=== PATIENT | female | born 1950 | race Caucasian/White ===

== ENCOUNTER → 2017-03-17 | Outpatient (CLI) | payer BC | LOC: BMCIMAGING 14:02 | PROVIDERS: ATTEND Family Medicine | DX: M79.89 Other specified soft tissue disorders (principal) ==

== ENCOUNTER → 2017-07-21 | Outpatient (CLI) | payer BC ==
[~2017-07-21] MED LIST: IOPAMIDOL (ISOVUE 370) 100 ML BTL IV ONE
== END ==
LOC: FIMAGING 12:39
PROVIDERS: ATTEND Internal Medicine Rheumatology
DX: Q27.9 Congenital malformation of peripheral vascular system, unspecified (principal)
CPT/HCPCS: Q9967

== ENCOUNTER 2018-02-24 17:04 | Inpatient (IN) | payer OTHER, BC ==
--- NOTE | 2018-02-24 17:22 | CPEKG ---
Heart Rate: 68 RR Interval: 882 P-R Interval: 160 QRSD Interval: 88 QT Interval: 404 QTC Interval: 430 P [place]: 30 QRS [place]: -16 T Wave [place]: 21 EKG Severity - OTHERWISE NORMAL ECG - EKG Impression: SINUS RHYTHM EKG Impression: BORDERLINE LEFT AXIS DEVIATION Electronically Signed By: Cristal Wright 24-Feb-2018 22:42:46
[2018-02-24] MEDS ORDERED: ASPIRIN 81 MG CHEWABLE TAB PO ONE (18:00)
--- NOTE | 2018-02-24 18:01 | EDPHY ---
H & P Time Seen by Provider: 02/24/18 17:25 HPI/ROS: CHIEF COMPLAINT: Achiness, abnormal labs HISTORY OF PRESENT ILLNESS: The patient is a 68 y/o female sent by her PCP for abnormal blood work and achiness. She developed fatigue, headache, and achiness in her chest, upper back, neck, and shoulders, at the end of December. The symptoms were constant for two weeks but dissipated. She felt normal for a week and traveled to [place]. After she returned, her achiness reappeared, prompting her to visit her PCP on Wednesday. The blood work done by her PCP indicated elevated troponin and d-dimer. Her achiness is transient with no known factors causing the appearance. She has associated occasional shortness of breath and fatigue. She denies peripheral edema, pain or redness in the lower extremities, diaphoresis, or any other associated symptoms. Her father had cardiac issues in his 60s. She is a former smoker. Her only recent travel is to and from [place] via airplane. She does not take aspirin. REVIEW OF SYSTEMS: A 10 point review of systems was performed and is negative with the exception of the elements mentioned in the history of present illness. Past Medical/Surgical History: 1. 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 Hypercholesterolemia 3. Vertigo after air travel Social History: Neighbors at bedside, enjoys watching [employer], traveling to [place] in the next few months Smoking Status: Former smoker Physical Exam: General Appearance: Alert, pleasant Eyes: Pupils equal and round, no conjunctival pallor or injection ENT, Mouth: Mucous membranes moist Neck: Normal inspection Respiratory: Lungs are clear to auscultation Cardiovascular: Regular rate and rhythm Gastrointestinal: Abdomen is soft and non-tender Neurological: A&O, nonfocal exam Skin: Warm and dry, no rash Extremities: Nontender, no pedal edema Psychiatric: Mood and affect normal Constitutional: Initial Vital Signs Temperature (C) 36.9 C 02/24/18 17:07 Heart Rate 69 02/24/18 17:07 Respiratory Rate 16 02/24/18 17:07 Blood Pressure 121/78 H 02/24/18 17:07 O2 Sat (%) 96 02/24/18 17:07 O2 Delivery Mode Nasal Cannula O2 (L/minute) 2 Allergies/Adverse Reactions: Penicillins Allergy (Verified 02/24/18 18:45) Hives Home Medications: Medication Instructions Recorded Albuterol [Proventil Inhaler HFA 1 - 2 puffs IH Q4H PRN 02/24/18 (*)] Fluticasone Hfa 110 Mcg [Flovent 2 puffs IH BID 02/24/18 110 MCG Hfa MDI (*)] Fluticasone Nasal [Flonase Nasal 1 sprays NASAL DAILY 02/24/18 Gause (RX)] Venlafaxine Xr [Effexor Xr 37.5MG 37.5 mg PO DAILY@12 02/24/18 (*)] Zolpidem Tartrate [Ambien 5MG (*)] 5 mg PO HS PRN 02/24/18 Medical Decision Making - Diagnostics EKG Interpretation: EKG interpreted by me reveals normal sinus rhythm, rate 68, left axis deviation , no ST or T segment changes. Interpretation: Borderline EKG. Imaging Results: Chest X-Ray 02/24/18 18:00 Impression: 1. Airways disease and atelectasis. 2. Minimal cardiomegaly. No failure. ED Course/Re-evaluation: The patient presents chest discomfort, elevated troponin and d-dimer. Clinical scenario consistent with CAD/ACS; doubt pulmonary embolism, given intermittent symptoms. Stat EKG reveals no evidence of ischemia or dysrhythmia. She has been experiencing intermittent achiness in her neck, shoulders, back and chest for several weeks. She has associated fatigue and occasional shortness of breath. She denies any other symptoms. Her exam is normal. Plan for a re-draw of labs, including troponin and BNP; EKG, chest X-ray, and aspirin. ASA 324mg orally given. Chest x-ray is unremarkable; no evidence of pneumonia or pneumothorax. 6:15 PM- patient continues to be asymptomatic. patient monitor revealed normal sinus rhythm throughout. CT pulmonary angiogram ordered because of elevated D- dimer and reveals no evidence of pulmonary embolism. Given elevated troponin, which is rising, she will need to be admitted for further cardiac evaluation. I spoke with the hospitalist regarding admission for this patient. Dr. Gutiérrez will be the admitting physician. The patient agrees to this course of action. Differential Diagnosis: Differential diagnosis includes though it is not limited to pneumonia, pneumothorax, pulmonary embolism, aortic dissection, pericarditis, acute coronary syndrome. - Data Points Laboratory Results: Laboratory Results 02/24/18 22:49 02/25/18 10:10 Troponin I 0.118 ng/mL H ng/mL (0.000-0.034) Microbiology Results: MICROBIOLOGY 02/25/18 10:20 Nasal, Sinus - Swab Respiratory Panel (PCR) - Final No Organism Detected Medications Given: Acetaminophen (Tylenol) 650 mg PO Q4HRS PRN PRN Reason: Pain, Mild/Fever, Can Take PO Stop: 08/23/18 18:15 Last Admin: 02/25/18 19:44 Dose: 650 mg Enoxaparin Sodium (Lovenox) 40 mg SC DAILY [facility] Stop: 08/24/18 08:59 Last Admin: 02/25/18 10:20 Dose: Not Given Fluticasone Propionate (Flovent Hfa) 2 puffs IH BID [facility] Stop: 08/23/18 20:59 Last Admin: 02/25/18 10:20 Dose: Not Given Fluticasone Propionate (Flonase Nasal Gause) 1 sprays [place] DAILY [facility] Stop: 08/24/18 08:59 Last Admin: 02/25/18 10:20 Dose: Not Given Venlafaxine HCl (Effexor Xr) 37.5 mg PO DAILY@12 [facility] Stop: 08/24/18 11:59 Last Admin: 02/25/18 15:27 Dose: 37.5 mg Discontinued Medications Aspirin (Aspirin) 324 mg PO EDNOW ONE Stop: 02/24/18 18:01 Last Admin: 02/24/18 18:22 Dose: 324 mg Aspirin Buffered (Aspirin Ec) 325 mg PO ONCALL ONE Stop: 02/25/18 09:59 Last Admin: 02/25/18 10:37 Dose: 325 mg Diazepam (Valium) 5 mg PO ONCALL ONE Stop: 02/25/18 09:59 Last Admin: 02/25/18 10:37 Dose: 5 mg Diphenhydramine HCl (Benadryl) 25 mg PO ONCALL ONE Stop: 02/25/18 09:59 Last Admin: 02/25/18 10:37 Dose: 25 mg Famotidine (Pepcid) 20 mg PO ONCALL ONE Stop: 02/25/18 09:59 Last Admin: 02/25/18 10:37 Dose: 20 mg Departure - Departure Disposition: [facility] Clinical Impression: Elevated troponin Chest pain Qualifiers: Chest pain type: unspecified Qualified Code(s): R07.9 - Chest pain, unspecified Condition: Fair Report Scribed for: Cristal Wright Report Scribed by: Kinsey Lorenz Date of Report: 02/24/18 Time of Report: 17:43 Physician Review and Approval Statement: 02/24/18 17:43 Portions of this note were transcribed by a senior medical transcriptionist. I personally performed a history, physical exam, medical decision making, and confirmed accuracy of information the transcribed note.
[2018-02-24] MEDS ORDERED: ONDANSETRON 4 MG/2 ML VIAL IVP PRN (18:16)
[2018-02-24] MEDS ORDERED: ONDANSETRON DISINTEGRATING 4 MG TAB PO PRN (18:16)
[2018-02-24] MEDS ORDERED: NITROGLYCERIN 0.4 MG BTL SL PRN (18:21)
[2018-02-24] MEDS ORDERED: IOPAMIDOL (ISOVUE 370) 100 ML BTL IV ONE (19:25)
[2018-02-24] MEDS ORDERED: ALBUTEROL 60 PUFFS/8 GM MDI IH PRN (20:03)
[2018-02-24] MEDS ORDERED: ZOLPIDEM TARTRATE 5 MG TAB PO PRN (20:03)
[2018-02-24] MEDS: ACETAMINOPHEN 325 MG TAB PO PRN (20:53)
[2018-02-24 22:55] LABS: PLATELET COUNT 212 10^3/uL (150-400)
[2018-02-24] MEDS: FLUTICASONE HFA 110 MCG MDI IH SCH (23:10)
--- NOTE | 2018-02-25 | GHP ---
[f rep st] HISTORY AND PHYSICAL DATE OF ADMISSION: 02/24/2018 CHIEF COMPLAINT: Chest pressure, fatigue. HISTORY OF PRESENT ILLNESS: A 68-year-old female with history of hyperlipidemia , pre-diabetes, prior osteomyelitis of left finger, presenting with nonspecific symptoms including chest pressure. It is a bit difficult to get a clear history , but began feeling achy in chest, fatigued with cough starting late December. [facility] like the flu. Had been in [place] in [place]. Did not get sick there and took all immunizations. Has intermittent episodes of chest pressure that occur at rest; episodes lasting 2 hrs or more, No associated diaphoresis, N/V or hand tingling. Can radiate neck and her right arm. No aggravating factors; does not change with activity. Relieved by Advil. Was feeling better, so went to [place] for Spring Break. Symptoms restarted this past week. Again, achy, chills and shivers. Chest pain in both shoulders and right arm. No F/C/S.. No N/V/D. More fatigued. No joint pain or swelling. 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 Exercises in a class called "[employer]" 3 times a week doing running, weights , strength training without chest pressure or shortness of breath. Gets winded if she walks up several flights of stairs, but that is not new. Went to PCP today had elevated troponin at 0.09 and D-dimer. REVIEW OF SYSTEMS: I completed a 10-point review of systems, negative except as noted in HPI. 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 Recent vertigo. 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 She is followed by Dr. Salguero. Hyperlipidemia. Pre- diabetes with A1c 5.8. Depression. PAST SURGICAL HISTORY: . Removal of the lung in 2000. FAMILY HISTORY: Dad with coronary artery disease. Mother with rheumatoid arthritis. Great aunt with stroke. ALLERGIES: Flonase, Flovent, Ambien, Effexor 37.5, albuterol. SOCIAL HISTORY: Lives in [place]. Is accompanied here by her neighbors. Occasional marijuana. Had a [id number] tobacco. Drinks 2 glasses of wine a night. PHYSICAL EXAMINATION: VITAL SIGNS: Temperature 36.9, blood pressure 129/70, heart rate is , respirations 16, 94% on room air. GENERAL: Overweight female in no acute distress. Smiling. HEENT: PERRLA. EOMI. Oropharynx clear. CV: Regular rate and rhythm. No murmurs, gallops, or rubs. No lower extremity edema. No reproducible chest pain. LUNGS: Clear. No wheezing or crackles. ABDOMEN: Soft, nontender, nondistended. Positive bowel sounds. : No Reese. No suprapubic tenderness. MUSCULOSKELETAL: 5/5 upper and lower extremity strength. No synovitis or joint swelling. Right hand is cool and purplish color, but this is chronic per her. It has a good radial pulse. NEURO: 2 through 12 intact. PSYCH: Alert and oriented x3. LABORATORY: A1c is 5.4. AST is 33. ALT is 57. Total bilirubin 0.7. Conjugated 0.4. CRP is 74. BNP is 1930. Albumin is 3.9. Initial troponin 0.098; repeated 0.115. Chest x-ray negative for effusion or edema. Does show cardiomegaly. Surgical clips in place. EKG was personally reviewed by me. ST flattening in lead 3, aVF, V1 through V3. No old to compare. ASSESSMENT AND PLAN: 1. Chest pressure: vague symptoms could be anginal equivalent, but it does not occur with exercise and can be constant for hours. Relieved by Advil. Differential includes infection,myocarditis, PE, ACS, vs another systemic etiology. Had extensive travel and dimer. CTA pending. Repeat troponin bumped to 0.115, BNP elevated to 1930. No signs of CHF. EKG shows low-voltage. Start with TTE and will likely need stress test vs. cath. Consult cardiology in morning. ESR/CRP pending. 2. Fatigue. Check TSH. Query some illness possibly related to trip to [place] , but denies being sick there. 3. Depression. Effexor. 4. Hyperlipidemia. Not on medications. 5. Alcohol use. 2 glasses wine daily. 6. Questionable Raynaud's: per pt, seen by Dr. Rivera. CT in June 2017 showed a congenital small subclavian left artery and this is thought to be causing hand discoloration. She also has a high bifurcation of the radial and ulnar arteries at the upper humeral level. Denies other systemic joint swelling/ pain. 7. Diet. Regular. No caffeine. Nothing by mouth after midnight. 8. DVT: Lovenox DISPOSITION: Patient warrants observation and admission given possible anginal equivalents requiring stress test, CTA. Discussed case with Dr. Wright in ER. /[id number]/MODL MTDD
[2018-02-25] MEDS ORDERED: DIAZEPAM 5 MG TAB PO ONE (09:58)
[2018-02-25] MEDS ORDERED: TEMAZEPAM 15 MG CAP PO PRN (09:58)
[2018-02-25] MEDS ORDERED: FAMOTIDINE 20 MG TAB PO ONE (09:58)
[2018-02-25] MEDS ORDERED: diphenhydrAMINE 25 MG CAP PO ONE ×2 (09:58→10:27)
[2018-02-25] MEDS ORDERED: ASPIRIN EC 325 MG TAB PO ONE ×2 (09:58→10:27)
--- NOTE | 2018-02-25 10:04 | PDHPUP ---
History & Physical Update H&P update statement: This history and physical update is based on an assessment of the patient which was completed after admission or registration (within 24 hours), but prior to the surgery/procedure. H&P update: H&P reviewed & patient examined, no change in patient's condition since H&P completed
--- NOTE | 2018-02-25 10:04 | PDPROPOC ---
Sedation Plan of Care Sedation Plan of Care: mental status noted, patient educated of risks, benefits , alternatives, patient can tolerate sedation ASA Classification: ASA 2 Planned drugs: fentanyl, midazolam Mallampati Score: Class 2 Mallampati Reference Image: Patient passed 3-3-2 rule?: Yes
[2018-02-25] MEDS: FLUTICASONE HFA 110 MCG MDI IH SCH ×2 (10:20→20:58)
[2018-02-25] MEDS: ENOXAPARIN 40 MG/0.4 ML SYR SC SCH (10:20)
[2018-02-25] MEDS: FLUTICASONE NASAL 120 SPRAYS/16 GM MDI EACHNARE SCH (10:20)
[2018-02-25] MEDS ORDERED: FAMOTIDINE 20 MG TAB ONE (10:27)
[2018-02-25] MEDS ORDERED: DIAZEPAM 5 MG TAB ONE (10:28)
--- NOTE | 2018-02-25 10:36 | GCON ---
[f rep st] CONSULTATION CARDIOLOGY CONSULTATION REFERRING PHYSICIAN: Marzena Gutiérrez MD CHIEF COMPLAINT: Chest pressure, fatigue. HISTORY OF PRESENT ILLNESS: This is a 68-year-old female with history of hyperlipidemia, who present ed to [facility] with complaints of nonspecific symptoms, including chest pressure over the last few weeks. The patient indicates that she has been having on and off achy symptoms in the chest and fatigue, wh ich has at times waxed and waned. In the last 48 hours, she has noticed though that these symptoms h ave been getting worse, and decided to come to the emergency room for further evaluation. In the [facility] room, her ECG showed normal sinus rhythm with nonspecific T-wave changes. She did have elevat ed troponins in the emergency room, as well as elevated BNP level. Currently, blood pressure and heart rate are stable. Patient denies any current chest discomfort at rest. She denies any smoking or drug use. PAST MEDICAL HISTORY: Significant for osteomyelitis of the left finger, history of hyperlipidemia, p rediabetes, depression. FAMILY HISTORY: Significant for coronary artery disease on the paternal side. SOCIAL HISTORY: Was a former smoker. Occasional marijuana use. Occasional alcohol use. HOME MEDICATIONS: Please see patient's attached chart. REVIEW OF SYSTEMS: Patient denies any vision change, no headache. No palpitations. No chest pain a t rest. No shortness of breath. No abdominal pain. No lower extremity pain. No back pain. No new neurologic issues. PHYSICAL EXAMINATION: VITAL SIGNS: Patient currently afebrile at 96, blood pressure 126/70, with a heart rate of 80, respirations 12, sat 95% on room air. HEENT: Pupils equal, round, reactive to lig ht and accommodation. Extraocular movements intact. CARDIOVASCULAR: Regular rhythm, S1, S2. LUNGS : Clear to auscultation bilaterally. ABDOMEN: Soft, nontender, no guarding. EXTREMITIES: No club daron, no cyanosis, no edema. NEUROLOGIC: Patient is alert and oriented x3. LABORATORY VALUES: Currently show a troponin of 0.137. Sodium 141, potassium 4.1. White cells of 6 .6, hemoglobin 13.3, hematocrit 39.7, platelets of 212. ASSESSMENT/PLAN: Chest pain/non-ST elevation myocardial infarction. At this time, given the patient 's history, as well as the elevated troponin levels, I feel that we should proceed with a left heart catheterization to define the patient's underlying coronary anatomy. I have explained the risks/poss ible complications of procedure including bleeding, stroke, and possible , and the patient would like to proceed with the heart catheterization. We will obtain an echocardiogram, though on prelimi nary evaluation of her images, it appears that her myocardial function is normal and she has no gross valvular abnormalities. This will of course be followed up with a full report after the echo is per formed. We will continue with her current medications and we will continue to treat as per her filippoi ophelia results show. /[id number]/MODL
[2018-02-25] MEDS ORDERED: LIDOCAINE 1% 300 MG/30 ML SDV ONE (10:40)
[2018-02-25] MEDS ORDERED: MIDAZOLAM 2 MG/2 ML VIAL ONE (10:41)
[2018-02-25] MEDS ORDERED: fentaNYL 100 MCG/2 ML INJ ONE ×2 (10:41→11:39)
[2018-02-25] MEDS ORDERED: IOPAMIDOL (ISOVUE-370) 150 ML BTL IV ONE (10:41)
--- NOTE | 2018-02-25 10:49 | ECHO ---
[email or web address] [address] Main: [phone] Fax: [email or web address] Echocardiogram Name: YARIEL GARCES MR#: [id number] Study Date: 02/25/2018 Study Time: 09:46 AM Date of : 1950 Age: 68 year(s) Height: 154.9 cm (61 in.) Weight: 69.85 kg (154 lb.) BSA: 1.69 m2 Gender: Female Examination: Echo Indication: Chest Pain Image Quality: Contrast: Requested by: Marzena Gutiérrez BP: 141 mmHg/69 mmHg Heart Rate: Rhythm: Normal sinus rhythm Indication: Chest Pain Procedure Staff Bilingual Hr Generalist: Akash Hernandez RDCS Reading Physician: Derik Aponte MD Requesting Provider: Conclusions: Normal global systolic LV function. EF is 68 %. Trivial mitral valve regurgitation. Measurements: Chambers Valvular Assessment AV/MV Valvular Assessment TV/PV Normal Normal Normal Name Value Range Name Value Range Name Value Range Ao Janine (MM): 2.6 cm (2.2 cm-3.7 AV Vmax: 1.78 m/s (1 m/s-1.7 PV Vmax: 0.92 m/s (0.6 m/s-0.9 cm) m/s) m/s) IVSd (2D): 1.0 cm (0.6 cm-1.1 AV maxP mmHg ( - ) PV PGmax: 3 mmHg ( - ) cm) LVOT Vmax: 1.20 m/s (0.7 m/s-1.1 LVDd (2D): 3.8 cm (3.9 cm-5.3 m/s) cm) MV E Vmax: 0.77 m/s ( - ) LVDs (2D): 2.4 cm (2.1 cm-4 MV A Vmax: 0.85 m/s ( - ) cm) MV E/A: 0.91 ( - ) LVPWd (2D): 1.4 cm ( - ) LVEF (2D): 68 (>=54 %) Continued Measurements: Chambers Valvular Assessment AV/MV Name Value Name Value LADs Lon.9 cm MV E' Septal: 0.05 m/s LA Area: 14.5 cm2 MV E/E' Septal: 16.50 LA Volume: 42 ml MV E/E' Lateral: 11.40 LA Volume Index: 24.9 ml/m2 Patient: YARIEL GARCES Study Date: 02/25/2018 Page 1 of 2 09:46 AM Findings: Left Ventricle: Normal size left ventricle. No LV hypertrophy. Normal global systolic LV function. EF is 68 %. No regional wall motion abnormality. Diastolic dysfunction is present. . Right Ventricle: Normal size right ventricle. Normal RV function. Left Atrium: The left atrium is normal in size. Right Atrium: The right atrium is normal in size. Mitral Valve: The mitral valve is normal in appearance and function. Trivial mitral valve regurgitation. Aortic Valve: The aortic valve is tri-leaflet. The aortic valve is normal in appearance and function. There is no aortic valve regurgitation. Tricuspid Valve: The tricuspid valve appears normal. Pulmonic Valve: The pulmonic valve is normal in appearance and function. Aorta: The aorta is normal. Pericardium: No pericardial effusion. (No Signature Object) Patient: YARIEL GARCES Study Date: 02/25/2018 Page 2 of 2 09:46 AM [id number]
[2018-02-25] MEDS ORDERED: BIVALIRUDIN 250 MG/5 ML VIAL IV ONE (11:12)
[2018-02-25] MEDS ORDERED: CLOPIDOGREL BISULFATE 75 MG TAB ONE (11:23)
[2018-02-25] MEDS ORDERED: METOPROLOL TARTRATE 5 MG/5 ML INJ ONE (11:40)
[2018-02-25] MEDS ORDERED: hydrALAZINE 20 MG/ML VIAL ONE (11:44)
[2018-02-25] MEDS ORDERED: NITROGLYCERIN 1,500 MCG/15 ML VIAL MISC ONE (11:45)
[2018-02-25] MEDS ORDERED: VENLAFAXINE XR 37.5 MG CAP PO SCH (12:00)
[2018-02-25] MEDS ORDERED: ATROPINE SULFATE 1 MG/10 ML SYR IVP PRN (12:05)
--- NOTE | 2018-02-25 13:08 | ASMTCASEMG ---
Living Arrangements What is your living Answers: Alone arrangement? Who do you live with? Type Of Residence What kind of residence do Answers: House you live in? Discharge Plan Comments Coordination Status Comments Notes: Pt is a 68 y/o female admitted for chest pain. Pt is having a heart CATH today. Pt will most likely d/c independent when medically stable. No therapies ordered at this time. CM available for changes. Plan: Independent Date Signed: 02/25/2018 01:07 PM Electronically Signed By:JV Jimenez
--- NOTE | 2018-02-25 17:51 | HOSPPROG ---
Hospitalist Progress Note Assessment/Plan: * NonSTEMI s/p stent LAD -ASA/Plavix * Hyperlipidemia -statin started * HTN -Norvasc * Congenital small left subclavian artery Subjective: Feels great post cath Objective: Vital Signs Temp Pulse Resp BP Pulse Ox 36.7 C 70 18 124/81 H 97 02/25/18 15:50 02/25/18 15:50 02/25/18 15:50 02/25/18 15:50 02/25/18 15:50 Microbiology 02/25/18 10:20 Respiratory Panel (PCR) - Final Nasal, Sinus - Swab No Organism Detected Laboratory Results 02/24/18 22:49 02/24/18 02/25/18 02/26/18 05:59 05:59 05:59 Output Total 600 Balance -600 Cardiology consulted - case d/w Dr. Whitaker ECHO - normal EF - Physical Exam Constitutional: no apparent distress, appears nourished, not in pain Cardiovascular: regular rate and rhythym, no murmur, rub, or gallop Respiratory: no respiratory distress, no rales or rhonchi, clear to auscultation Gastrointestinal: normoactive bowel sounds, soft, non-tender abdomen, no palpable masses Skin: no rashes or abrasions, no fluctuance, no induration Neurologic: AAOx3, sensation intact bilaterally Psychiatric: interacting appropriately, not anxious, not encephalopathic, thought process linear ICD10 Worksheet Patient Problems: Problems Problem Status Onset Chest pain Acute Elevated troponin Acute
--- NOTE | 2018-02-25 18:26 | PDMN ---
Medical Necessity Medical necessity: C/M review: Patient meets INPT crtieria under [facility] M-230 Myocardial infarction: Acute NSTEMI, troponins 0.137, 0.118, 86% RA sat, requiring 02/26/2016 cardiac catheterization - [facility], PCI with stent to LAD, ongoing oral Plavix and aspirin QD, cardiac monitoring, pulse oximetry, supplemental O2, comorbid hyperlipidemia, hypertension, congenital small left subclavian artery. MD anticipates > 2 MN LOS for ongoing med nec for eval and TX of above.
[2018-02-25] MEDS: ACETAMINOPHEN 325 MG TAB PO PRN (19:44)
--- NOTE | 2018-02-25 20:18 | CPIP ---
[f rep st] INVASIVE CARDIAC PROCEDURE DATE OF PROCEDURE: 02/25/2018 INDICATION FOR PROCEDURE: Non-STEMI. PROCEDURES: 1. Nonselective right groin sheathogram. 2. Bilateral coronary angiography. 3. Left heart catheterization. 4. Left ventriculogram. 5. Percutaneous intervention of mid left anterior descending utilizing Synergy 2.5 x 16 mm drug-elut ing stent. DESCRIPTION OF PROCEDURE: Briefly, this is a 68-year-old female who was admitted for chest pain. Th e patient was found to have elevated troponins. Given the fact the patient had chest pain, as well a s elevated troponins, the patient was consented for left heart catheterization the patient was brought to [facility] where the right groin was prepped and draped in sterile fashion. Using lidocaine, a short 6-Panamanian sheath introduced into the right common femoral artery verified angiograp hically. Through the 6-Panamanian sheath, a JL4 catheter was advanced to the left coronary artery. Imag es of the left coronary artery revealed normal short left main. Left circumflex artery appeared to b e a codominant circulation giving off an LPLS proximally which was healthy and free of disease. Just distal to this, there was a tubular area of disease ranging up to 50% to 60% disease. Distally, the marginal artery appeared to be healthy and free of disease. The LAD was a long vessel which wrapped around the apex. The LAD gave off a medium diagonal artery proximally which was healthy and free of disease. In the midbody of the LAD, there was a tubular area of 70% stenosis just at the takeoff of a small diagonal artery. Distally, the LAD appeared to be widely patent. After these images were o btained, the JL4 catheter was removed. A JR4 catheter was then advanced to the right coronary artery . Images of the right coronary artery revealed normal ostial RCA, prox 20% plaque disease. Distally , the RPDA appeared to be healthy and free of disease. After the images were obtained, the JR4 jacqueline ter was removed. The pigtail catheter was guided into the left ventricle. LVEDP was 15 mmHg. Left ventriculogram in the LAKHANI projection showed an EF of 60% with no wall motion abnormalities. There wa s no pull-back gradient between the LV and the aorta. INTERVENTION REPORT: At this time, patient was administered mg of Plavix p.o., started on Angiomax bolus and drip. Utilizing the EBU 3.0 guide, the left coronary artery was selectively enga ged. A Choice PT wire was placed down the LAD. Predilatation was commenced with a 2.5 x 15 mm ballo on at 12 atmospheres. After this was performed, we then proceeded with stenting of the vessel with a 2.5 x 60 mm Synergy drug-eluting stent. This was deployed successfully at 14 atmospheres. After de ployment, angiography showed excellent patency of the stented area. The small diagonal artery that w as coming off the area of question had an ostial pinch. However, there was still intact CAITY-3 flow through the vessel. 200 mcg of nitroglycerin were administered IC and images were retaken and once a gain showed excellent patency of the stented areas. No evidence of dissection or perforation. Once again, there was CAITY-3 flow through the small diagonal artery coming off the stented area with an os tial pinch. At this time, the wire was removed. The guide catheter was removed . Right g roin was closed using 6-Panamanian Angio-Seal. The patient tolerated the procedure well. There were no complications. IMPRESSION: 1. 70% mid left anterior descending disease treated successfully with Synergy 2.5 x 16 mm drug-eluti ng stent. 2. Moderate disease in the marginal 1 artery rated 50% to 60%. 3. Codominant right coronary artery which shows no significant disease. 4. Normal ejection fraction. PLAN: The patient would be started on aspirin and Plavix. Aggressive risk factor modification inclu ding statins and blood pressure control will be initiated. Anticipate potential discharge within 24 hours. /[id number]/MODL
[2018-02-26 04:00] LABS: PLATELET COUNT 204 10^3/uL (150-400)
[2018-02-26 08:03] VITALS: BP 144/77
[2018-02-26] MEDS: FLUTICASONE NASAL 120 SPRAYS/16 GM MDI EACHNARE SCH (08:55)
[2018-02-26] MEDS: ENOXAPARIN 40 MG/0.4 ML SYR SC SCH (08:55)
[2018-02-26] MEDS: FLUTICASONE HFA 110 MCG MDI IH SCH (08:55)
[2018-02-26] MEDS ORDERED: ATORVASTATIN CALCIUM 40 MG TAB PO SCH (09:00)
[2018-02-26] MEDS ORDERED: CLOPIDOGREL BISULFATE 75 MG TAB PO SCH (09:00)
[2018-02-26] MEDS ORDERED: amLODIPine BESYLATE 5 MG TAB PO SCH (09:00)
[2018-02-26] MEDS ORDERED: ASPIRIN EC 325 MG TAB PO SCH (09:00)
[2018-02-26] MEDS ORDERED: METOPROLOL TARTRATE 25 MG TAB PO SCH (09:30)
[2018-02-26] MEDS ORDERED: ASPIRIN EC 81 MG TAB PO SCH (09:45)
--- NOTE | 2018-02-26 09:46 | PDCARPN ---
Cardiology Progress Note Chief Complaint: Patient reports twinge of chest pain throughout the evening, lasting less than a few seconds. Not similar to what she had prior to admission. s Assessment/Plan: Assessment: 68-year-old female with significant past history of hyperlipidemia, borderline diabetes and congenital small left subclavian artery. Admitted yesterday for complain of fatigue with vague chest pressure symptoms. Troponin level done showing mild elevation up to 0.137. Electrocardiogram done on admission showing no acute ST or T-wave abnormalities suggesting acute ischemia. Cardiac catheterization yesterday by Dr. Aponte showing a 70% lesion in mid LAD, and a 50% tubular lesion and obtuse marginal. PCI with SARIKA implantation (2.5 x 6 16 synergy stent implanted with without complications. Echocardiogram done yesterday prior to procedure showing normal LV size and LV systolic function with EF of 68% with no wall motion abnormalities. Diastolic dysfunction was present. Trivial MR. Today: Patient reporting overnight, twinge of mild midsternal chest pressure, dissipating within a few seconds. Continues to report fatigue, but feels it is improved since hospitalization. Denies of any shortness of breath, orthopnea, lightheadedness, near-syncope, or syncopal events. 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 Plan: 1. Non ST elevated SD: Patient reporting twinges of chest pressure, but no significant chest pain similar to what she had prior to admission. She is status post PCI with SARIKA implantation of LAD. She has been started on dual anti -platelet therapy of aspirin and clopidogrel. Will start her on low-dose beta- yumiko of metoprolol tartrate at 12.5 mg p.o. Twice daily. Will consider starting her on an RUI-inhibitor in outpatient setting. She has been started on atorvastatin for secondary risk prevention. Cardiac read referral done. Sublingual nitro p.r.n.. 2. Hyperlipidemia: Patient started on atorvastatin. She will need to have a repeated fasting lipid and liver panel done in 6-8 weeks. 3. Hypertension: Patient started on Norvasc yesterday, BP improved. Added metoprolol as mentioned above. Patient to be discharged home later today. Post percutaneous coronary intervention discharge instructions went over with the patient including activity restrictions, bleeding precautions, medication compliance, bathing precautions. I have scheduled the patient to be seen by Dr Aponte on March 08 at our [place] office. She has been told that if she has any problems or concerns post discharge, she is to call our office or return to the hospital. 02/26/18 09:44 Subjective: Patient denies of any shortness of breath, orthopnea, PND, edema, palpitations, lightheadedness, near-syncope, or syncopal events. Denies symptoms suggestive of TIA or CVA Reviewed/Discussed With: hospitalist (Dr Ahumada), other (Dr Whitaker) Objective: Vital Signs (8 Hrs) Temp Pulse Resp BP Pulse Ox 02/26/18 08:00 37.0 C 61 15 144/77 H 95 02/26/18 03:33 36.8 C 58 L 16 136/77 H 98 Intake/Output (24 Hrs) 02/25/18 02/26/18 02/27/18 05:59 05:59 05:59 Intake Total 400 Output Total 700 Balance -300 Intake: Oral (ml) 400 IV Intake (ml) 0 Output: Urine (ml) 700 Toilet 700 Other: Number of Voids Toilet 1 Result Diagrams: 02/26/18 03:25 02/26/18 03:25 - Physical Exam Constitutional: WDWN, no apparent distress Ears, Nose, Mouth, Throat: moist mucous membranes Cardiovascular: regular rate and rhythm, no murmurs, no rubs, no gallops, pulses symmetric bilat, No jugular vein distention Peripheral Pulses: 1+: dorsalis-pedis (R), dorsalis-pedis (L), 2+: carotid (R), carotid (L) Respiratory: clear to auscultate bilat, no crackles, no wheezes Gastrointestinal: normoactive bowel sounds Skin: no rashes, warm, no edema, other (Right groin site, catheter insertion site, without redness, swelling drainage, bleeding, or hematoma. No auscultated bruit over site.) Neurologic: AAOx3 Psychiatric: cooperative, interactive, following commands ICD10 Worksheet Patient Problems: Problems Problem Status Onset Chest pain Acute Elevated troponin Acute
--- NOTE | 2018-02-26 10:25 | ASDISCHSUM ---
Discharge Information Plan Status:Home with No Needs Medically Cleared to Leave: Discharge Date: CM D/C Disposition:Home, Routine, Self-Care ADT D/C Disposition:Home, Routine, Self-Care Projected Discharge Date: Transportation at D/C: Discharge Delay Reason: Follow-Up Date: Discharge Slot: Final Diagnosis: Placement Information Patient Contact Information Contact Name:PEDRITO Relationship: Address: Work Phone: City: [facility] Phone: State/[place] Code: Email: Financial Information Financial Class:HMO and PPO Plans Primary Plan Desc:[employer]AN Primary Plan Number:[id number] Secondary Plan Desc: Secondary Plan Number: Assessment Information [facility] Initial CM Assessment Living Arrangements What is your living Answers: Alone arrangement? Who do you live with? Type Of Residence What kind of residence do Answers: House you live in? Discharge Plan Comments Coordination Status Comments Notes: Pt is a 68 y/o female admitted for chest pain. Pt is having a heart CATH today. Pt will most likely d/c independent when medically stable. No therapies ordered at this time. CM available for changes. Plan: Independent Date Signed: 02/25/2018 01:07 PM Electronically Signed By:JV Jimenez Intervention Information
--- NOTE | 2018-02-26 10:34 | ASMTCMCOM ---
CM Note CM Note Notes: Pt. to d/c independently today. Date Signed: 02/26/2018 10:33 AM Electronically Signed By:Tasneem Price LCSW
--- NOTE | 2018-02-26 12:05 | GDS ---
[f rep st] DISCHARGE SUMMARY DISCHARGE DIAGNOSES: 1. Non ST-elevation myocardial infarction. 2. Hyperlipidemia. 3. Hypertension. 4. Congenital small left subclavian artery. 5. Stent to the left anterior descending. HISTORY: The patient is a 68-year-old female, who presented with chest pain which was somewhat atypi marleny in nature. However, she did bump her troponin slightly which prompted cardiac catheterization. She had a stent placed to her mid LAD. She will be discharged on a standard regimen including aspiri n, Plavix, and beta-yumiko. Lipitor has been started. Her LDL was 104. Cardiology also initiated N orvasc for hypertension. DISCHARGE MEDICATIONS: Please see computer record for full detailed list. New medications: 1. Norvasc 5 mg p.o. daily. 2. Metoprolol 12.5 mg p.o. twice daily. 3. Aspirin 81 mg p.o. daily. 4. Plavix 75 mg p.o. daily. 5. Lipitor 40 mg p.o. daily. DISCHARGE INSTRUCTIONS: 1. Follow up with Dr. Aponte, [facility] March 08, at 1:40 p.m. 2. Standard groin precautions. Greater than 30 minutes' time spent arranging this discharge. Patient seen and examined by me on the day of discharge. /[id number]/MODL
== END 2018-02-26 11:05 | disposition home or self-care (01) | DRG 247 ==
LOC: F2W 19:59 → OBSVTOIN 02-25 17:49
PROVIDERS: ADMIT Internal Medicine; ATTEND Internal Medicine
PROC: 4A023N7 Measurement of Cardiac Sampling and Pressure, Left Heart, Percutaneous Approach (ICD-10-PCS; principal; 2018-02-25)
PROC: B2111ZZ Fluoroscopy of Multiple Coronary Arteries using Low Osmolar Contrast (ICD-10-PCS; principal; 2018-02-25)
PROC: B2151ZZ Fluoroscopy of Left Heart using Low Osmolar Contrast (ICD-10-PCS; principal; 2018-02-25)
PROC: 027034Z Dilation of Coronary Artery, One Artery with Drug-eluting Intraluminal Device, Percutaneous Approach (ICD-10-PCS; principal; 2018-02-25)
DX: I21.4 Non-ST elevation (NSTEMI) myocardial infarction (principal); I25.10 Atherosclerotic heart disease of native coronary artery without angina pectoris; I10 Essential (primary) hypertension; E78.5 Hyperlipidemia, unspecified; R73.03 Prediabetes; Z87.891 Personal history of nicotine dependence
CPT/HCPCS: C1725; C1760; C1769; C1874; C1887; C9600; G0378; J0360; J0583; J1644; J2250; J3010; Q9967